=== PATIENT | female | born 1960 | race Caucasian/White ===

== ENCOUNTER 2020-01-30 10:10 | Outpatient (CLI) | payer OTHER, SELFPAY ==
[2020-01-30 10:59] LABS: SARS-CoV-2 Ag Positive (Negative)
== END 2020-01-30 10:11 | disposition home or self-care (01) ==
LOC: CHSLAB 10:11
PROVIDERS: PCP Internal Medicine; Visit Provider Internal Medicine
DX: U07.1 COVID-19 (principal)
CPT/HCPCS: 87426

== ENCOUNTER → 2020-04-10 10:36 | Outpatient (CLI) | payer OTHER, SELFPAY ==
--- NOTE | ~2020-04-10 | MM_ITS ---
EXAMINATION: MM screening [facility] BI w puma HISTORY: Screening mammogram TECHNIQUE: Craniocaudal and mediolateral oblique 3-D tomosynthesis images were obtained and synthetic 2-D images were generated. CAD analysis was submitted and interpreted. COMPARISON: 12/28/2018, 11/03/2017, 08/19/2016 bilateral digital screening mammogram examinations BREAST PARENCHYMAL COMPOSITION: There are scattered areas of fibroglandular density. FINDINGS: There is no evidence of suspicious mass, calcification, or architectural distortion to sugg est malignancy in either breast. There has been no suspicious interval change. IMPRESSION: 1. No mammographic evidence of malignancy. 2. Recommend routine screening mammography in one year. BI-RADS Category 1: Negative Reviewed, dictated and finalized at location A. 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
== END ==
PROVIDERS: PCP Internal Medicine; Visit Provider Internal Medicine
DX: Z12.31 Encounter for screening mammogram for malignant neoplasm of breast (principal)
CPT/HCPCS: 77063; 77067

== ENCOUNTER → 2021-05-26 13:24 | Outpatient (CLI) | payer BC, SELFPAY ==
--- NOTE | ~2021-05-26 | MM_ITS ---
EXAMINATION: MM screening [facility] BI w puma HISTORY: Screening mammogram TECHNIQUE: Craniocaudal and mediolateral oblique 3-D tomosynthesis images were obtained and synthetic 2-D images were generated. CAD analysis was submitted and interpreted. COMPARISON: April 10, 2020, December 28, 2018, November 03, 2017 bilateral screening mammogram ex aminations BREAST PARENCHYMAL COMPOSITION: There are scattered areas of fibroglandular density. FINDINGS: There is no evidence of suspicious mass, calcification, or architectural distortion to sugg est malignancy in either breast. There has been no suspicious interval change. IMPRESSION: 1. No mammographic evidence of malignancy. 2. Recommend routine screening mammography in one year. BI-RADS Category 1: Negative Reviewed, dictated and finalized at location A.
== END ==
PROVIDERS: Visit Provider Internal Medicine
DX: Z12.31 Encounter for screening mammogram for malignant neoplasm of breast (principal)
CPT/HCPCS: 77063; 77067

== ENCOUNTER 2022-02-12 08:41 | Emergency (ER) | payer BC, SELFPAY ==
--- NOTE | ~2022-02-12 | XR_ITS ---
EXAMINATION: XR wrist RT min 3V DATE: 02/12/2022 09:13 INDICATION: Right wrist deformity. Fall. TECHNIQUE: 6 views of right wrist were obtained. COMPARISON: None. FINDINGS: There is a comminuted fracture of distal radius with involvement of the distal articular richey rface and distal radioulnar joint. The main distal fracture fragment demonstrates impaction and dorsa l angulation. There is 21 degrees dorsal tilt of the distal articular surface. There is mild osteoart hritis of first interphalangeal joint and first carpometacarpal joint. IMPRESSION: 1. Comminuted fracture of distal radius. Reviewed, dictated and finalized at location A. 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
--- NOTE | ~2022-02-12 | XR_ITS ---
EXAMINATION: XR elbow LT min 3V DATE: 02/12/2022 09:46 INDICATION: Left elbow pain. Fall. TECHNIQUE: 4 views of left elbow were obtained. COMPARISON: None. FINDINGS: Bone alignment is normal. No fracture. Joint spaces are normal. There is an elbow joint eff usion. IMPRESSION: 1. Elbow joint effusion. No fracture identified. Reviewed, dictated and finalized at location A. KEEPER
[2022-02-12 08:45] VITALS: BP 137/62; PULSE 56; RESP 18; TEMP 36.4; O2SAT 100
--- NOTE | 2022-02-12 09:04 | ED.GENADULT ---
HPI - General Adult General Chief complaint: Extremity Injury, Upper Stated complaint: right arm and wrist injury Time Seen by Provider: 02/12/22 08:50 History of Present Illness HPI narrative: The patient is otherwise healthy 61-year-old no significant past medical history, no medications. She was doing routine morning walk or bike she tripped and fell, landing on her right wrist where there is an obvious deformity. May have scraped her knees. Also with left elbow pain but is able to move the left elbow without much difficulty. Able to move right elbow and shoulder as well that any problems. No neck pain or back pain. No loss of consciousness. Mild tingling/paresthesias in the right hand but no numbness. No other complaints. Related Data Home Medications Medication Instructions Recorded Confirmed Adults Multivitamin 1 tablet BYMOUTH DAILY 02/12/22 02/12/22 Allergies Allergy/AdvReac Type Severity Reaction Status Date / Time No Known Drug Allergies Allergy Unknown Verified 05/28/14 10:19 Review of Systems Review of Systems: All systems reviewed & are unremarkable except as noted in HPI and below Constitutional: Constitutional: Reports no additional constitutional complaints, Denies anorexia, Denies body ache(s), Denies chills, Denies excessive sweating, Denies fatigue, Denies fever(s), Denies frequent falls, Denies headache(s), Denies malaise and Denies poor appetite Eyes: Eyes: Reports no additional eye complaints, Denies blurry vision, Denies change in vision, Denies irritation, Denies itchy eyes and Denies photophobia ENT: Reports system reviewed and no additional complaints, except as documented, Reports Normal hearing present, Denies change in voice, Denies dysphagia, Denies vertigo, Denies dizziness, Denies ear discharge, Denies headache(s), Denies hearing loss, Denies hoarseness, Denies nasal congestion, Denies neck pain, Denies sinus pressure, Denies sore throat and Denies throat swelling Cardiovascular: Cardiovascular: Reports no additional cardiovascular complaints, Denies chest pain, Denies syncope, Denies rapid heart rate, Denies irregular heart rhythm, Denies leg edema, Denies dyspnea and Denies slow heart rate Respiratory: Respiratory: Reports no additional respiratory complaints, Denies cough, Denies dyspnea, Denies stridor and Denies wheezing Gastrointestinal: Gastrointestinal: Reports no additional gastrointestinal complaints, Denies abdominal pain, Denies melena, Denies hematochezia, Denies dysphagia, Denies diarrhea, Denies nausea and Denies vomiting Genitourinary: Genitourinary: Denies hematuria, Denies urinary frequency, Denies dysuria, Denies flank pain and Denies urinary urgency Musculoskeletal: Musculoskeletal: Reports no additional musculoskeletal complaints, Denies abnormal gait, Denies back pain, Denies myalgias, Reports arthralgias, Reports joint swelling, Reports limited range of motion, Denies muscle cramps, Denies muscle weakness, Denies neck pain and Denies numbness Comments: Swelling pain and limited movement of the right wrist with a bony deformity Integumentary/Breasts: Skin/Breast: Reports system reviewed and no additional complaints, except as docu, Denies breast pain, Denies change in pigmentation, Denies pruritus, Denies erythema and Denies wounds Neurologic: Reports system reviewed and no additional complaints, except as documented, Reports Normal hearing present, Denies Abnormal speech present, Denies abnormal gait, Denies confusion, Denies vertigo, Denies dizziness, Denies syncope, Denies frequent falls, Denies headache(s), Denies focal weakness, Denies numbness and Denies paresthesias Psychiatric: Psychiatric: Reports no additional psychiatric complaints and Denies confusion Endocrine: Endocrine: Reports no additional endocrine complaints, Denies cold intolerance, Denies excessive sweating, Denies fatigue and Denies heat intolerance Hematologic/Lymphatic: Hematologic/Lymphatic: Report
[2022-02-12] MEDS: IBUPROFEN 600 MG TABLET PO (09:20)
[2022-02-12] MEDS: ACETAMINOPHEN 325 MG TABLET 975 MG PO (09:21)
[2022-02-12] MEDS: NEOMYCIN/POLYMYXIN/BACITRACIN OINTMENT 15 GM TUBE 1 APPLIC TOPICAL (09:30)
[2022-02-12 10:00] VITALS: BP 140/64; PULSE 60; RESP 20; TEMP 36.4; O2SAT 99
== END 2022-02-12 10:15 | disposition home or self-care (01) ==
PROVIDERS: Emergency Provider Emergency Medicine; PCP Internal Medicine
DX: S52.501A Unspecified fracture of the lower end of right radius, initial encounter for closed fracture (principal); S60.811A Abrasion of right wrist, initial encounter; S50.02XA Contusion of left elbow, initial encounter; W01.0XXA Fall on same level from slipping, tripping and stumbling without subsequent striking against object, initial encounter
CPT/HCPCS: 29125; 73080; 73110; 99284; A4565; A9270

== ENCOUNTER 2022-04-02 06:56 | Outpatient (CLI) | payer BC, SELFPAY ==
--- NOTE | ~2022-04-02 | MR_ITS ---
MRI of the left elbow CLINICAL HISTORY: Pain TECHNIQUE: Proton-density and proton-density fat-sat imaging was performed in the axial, coronal, and sagittal planes. FINDINGS: Ulnar collateral ligament is intact. Radial collateral ligament is probably thickened and h yperintense, compatible with partial tear/injury. There is moderate grade partial tearing at the comm on extensor tendon origin at the lateral epicondyle of the humerus. Common flexor tendon origin is un remarkable. There is extensive marrow edema throughout the lateral aspect of the distal humerus. No fracture iden tified. 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 Moderate elb ow joint effusion is present. No dislocation evident. Biceps, brachialis, and triceps tendons are intact. Visualized musculature demonstrates normal signal intensity. No subcutaneous mass or fluid evident. IMPRESSION: Moderate grade partial tearing at the common extensor tendon origin at the lateral epicondyle. Extensive marrow edema of the lateral aspect of the distal humerus without definite fracture. Finding s could reflect bone contusion versus reactive marrow edema due to lateral epicondylitis and high-gra de chondromalacia at the radiocapitellar articulation. Probable partial grade injury of the radial collateral ligament. Reviewed, dictated and finalized at location . 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 Extensive marrow edema of the lateral aspect of the distal humerus without defi nite fracture. Findings could reflect bone contusion versus reactive marrow annmarie ma due to lateral epicondylitis and high-grade chondromalacia at the radiocapit ellar articulation. Probable partial grade injury of the radial collateral ligament.
== END 2022-04-02 06:57 | disposition home or self-care (01) ==
LOC: CHSIMG 06:58
PROVIDERS: PCP Internal Medicine
DX: M25.522 Pain in left elbow (principal); S56.512A Strain of other extensor muscle, fascia and tendon at forearm level, left arm, initial encounter; M79.89 Other specified soft tissue disorders
CPT/HCPCS: 73221

== ENCOUNTER → 2022-08-09 10:27 | Outpatient (CLI) | payer BC, SELFPAY ==
--- NOTE | ~2022-08-09 | DEXA_ITS ---
Bone Density Report Name: LUIS PHILLIPS Age: 61 Sex: Female Ethnicity: White Date of : 1960 Indication: postmenopausal; screening for osteoporosis; prior fracture; hysterectomy; Referring Provider: Arian Squires Study: Bone densitometry was performed. Exam Date: August 09, 2022 Accession number: [id number] Bone Density: Region BMD T-score Z-score Classification AP Spine (L1-L4) 0.989 -0.5 1.2 Normal Femoral Neck (Left) 0.767 -0.7 0.7 Normal Total Hip (Left) 0.984 0.3 1.5 Normal Femoral Neck (Right) 0.732 -1.1 0.4 Osteopenia Total Hip (Right) 0.980 0.3 1.5 Normal Total Hip Mean 0.982 0.3 1.5 Normal World Health Organization criteria for BMD impression classify patients as: Normal (T-score at or above -1.0), Osteopenia (T-score between -1.0 and -2.5), or Osteoporosis (T-score at or below -2.5). 10-year Fracture Risk(1): Major Osteoporotic Fracture 13% Hip Fracture 1.0% Reported Risk Factors: [place] (), Neck BMD=0.732, BMI=24.7, previous fracture (1) FRAX(R) Version 3.08. Fracture probability calculated for an untreated patient. Fracture probability may be lower if the patient has received treatment. Previous Exams: Region Exam Age BMD T-score BMD Change BMD Change Date g/cm2 vs Baseline vs Previous AP Spine(L1-L4) 08/09/2022 61 0.989 -0.5 0.019 0.019 08/19/2016 56 0.970 -0.7 Total Hip(Left) 08/09/2022 61 0.984 0.3 -0.008 -0.008 08/19/2016 56 0.992 0.4 Total Hip(Right) 08/09/2022 61 0.980 0.3 0.005 0.005 08/19/2016 56 0.975 0.3 *Denotes significance at 95% confidence level, LSC for AP Spine = 0.022 g/cm2, LSC for Total Hip = 0.027 g/cm2 Clinical Information Provided by Patient: Has had a low trauma fracture Has the following medical conditions: Hysterectomy Patient maximum height was 65 Menopause Age: 38 Drinks caffeinated beverages Onset of menses at age 12 Number of children 2 Impression: The patient has low bone mass, based on the Right Femoral Neck T-score. The patient has an estimated ten-year risk of hip fracture of 1% and an estimated ten-year risk of major fracture of 13%, based on the WHO FRAX algorithm. The patient has risk factors, including: previous fracture. No significant bone loss was observed. Discussion: BONE DENSITY IS LOW AT ONE OR MORE SKELETAL SITES. This patient's lowest T-score is low at one or m
--- NOTE | ~2022-08-09 | MM_ITS ---
EXAMINATION: MM screening [facility] BI w puma HISTORY: Screening mammogram TECHNIQUE: Craniocaudal and mediolateral oblique 3-D tomosynthesis images were obtained and synthetic 2-D images were generated. CAD analysis was submitted and interpreted. COMPARISON: Serial mammographic examinations dating back to 12/28/2018 BREAST PARENCHYMAL COMPOSITION: There are scattered areas of fibroglandular density. FINDINGS: There is no evidence of suspicious mass, calcification, or architectural distortion to sugg est malignancy in either breast. There has been no suspicious interval change. IMPRESSION: 1. No mammographic evidence of malignancy. 2. Recommend routine screening mammography in one year. BI-RADS Category 1: Negative Reviewed, dictated and finalized at location A.
== END ==
PROVIDERS: PCP Internal Medicine; Visit Provider Internal Medicine
DX: Z12.31 Encounter for screening mammogram for malignant neoplasm of breast (principal); M81.0 Age-related osteoporosis without current pathological fracture; M85.851 Other specified disorders of bone density and structure, right thigh
CPT/HCPCS: 77063; 77067; 77080

== ENCOUNTER 2023-09-12 11:57 | Outpatient (CLI) | payer MEDICARE, SELFPAY ==
--- NOTE | ~2023-09-12 | MM_ITS ---
EXAMINATION: MM screening [facility] BI w puma HISTORY: Screening TECHNIQUE: Craniocaudal and mediolateral oblique 3-D tomosynthesis images were obtained and synthetic 2-D images were generated. CAD analysis was submitted and interpreted. COMPARISON: Comparison to multiple prior studies sequentially, with oldest reviewed study dated 08/2016. BREAST PARENCHYMAL COMPOSITION: Not dense: There are scattered areas of fibroglandular density. FINDINGS: There is no evidence of suspicious mass, calcification, or architectural distortion to sugg est malignancy in either breast. There has been no suspicious interval change. IMPRESSION: 1. No mammographic evidence of malignancy. 2. Recommend routine screening mammography in one year. BI-RADS Category 1: Negative Reviewed, dictated and finalized at location B.
== END 2023-09-12 11:58 ==
PROVIDERS: PCP Internal Medicine; Visit Provider Internal Medicine
DX: Z12.31 Encounter for screening mammogram for malignant neoplasm of breast (principal)
CPT/HCPCS: 77063; 77067

== ENCOUNTER 2024-05-02 00:56 | Day surgery (SDC) | payer MEDICARE, SELFPAY ==
[2024-04-23 14:17] VITALS: BMI 25.0
--- OUTSIDE RECORDS SUMMARY | 2024-05-02 00:59 | XMS_ITS | Clinical Summary ---
Author Organization [facility] Address [address] [place] [address] Care Team Providers Care Supervisor Accounts Receivable Name Role Phone Arian Squires MD Primary Care Provider [phone] Source Comments [facility],non-owned Affiliates and Associated Physician Practices is amultiple site organization consisting of ambulatory clinics and hospital sitesin [place], [place], [place] and [place]. This disclosure is being madepursuant to the Care Everywhere program and may not contain all information available regarding this patient. Last updated 17.[facility] Allergies No known active allergies Medications * Be aware that medications may not be up to date on this document. Alwaysverify current medications with the patient. Medication Sig Dispensed Refills Start Date End Date Status biotin 2.5 MG tablets Take 1 (one) tablet by mouth once daily Active multivitamin daily tablet Take 1 (one) tablet by mouth daily with food Active docusate sodium (Colace) 100 MG capsule Take 1 (one) capsule by mouth 2 times daily as needed for Constipation (relief of difficult bowel movements) 0 02/22/2022 Active aspirin (Aspirin) 81 MG chew tablet Take 1 (one) tablet by mouth once daily 14 tablet 02/22/2022 Active ondansetron, disintegrating, (Zofran ODT) 4 MG tablet Take 1 (one) tablet by mouth every 6 hours as needed for Nausea/Vomiting Allow tablet to dissolve on the tongue 10 tablet 02/22/2022 Active Active Problems No known active problems Social History Tobacco Use Types Packs/Day Years Used Date Smoking Tobacco: Never Smokeless Tobacco: Never Tobacco Cessation:Counseling Given: Not Answered Alcohol Use Standard Drinks/Week Comments Yes 0 (1 standard drink = 0.6 oz pur e alcohol) socially AUDIT-C Answer Date Recorded Q1: How often do you have a drink containing alcohol? Monthly or less 02/22/2022 Q2: How many drinks containi ng alcohol do you have on a typical day when you are drinking? Patient does not drink Q3: How often do you have si x or more drinks on one occasion? 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 Pulse 86 02/22/2022 11:52 AM ELECTRONIC FIELD SERVICE ENGINEER Temperature 36.7 C (98 F) 02/22/2022 11:52 AM ELECTRONIC FIELD SERVICE ENGINEER Respiratory Rate 16 02/22/2022 11:52 AM ELECTRONIC FIELD SERVICE ENGINEER Oxygen Saturation 95% 02/22/2022 11:52 AM ELECTRONIC FIELD SERVICE ENGINEER Inhaled Oxygen Concentration - - Weight 67.1 kg (148 lb) 02/22/2022 8:50 AM ELECTRONIC FIELD SERVICE ENGINEER Height 162.6 cm (5' 4 ) 02/22/2022 8:50 AM ELECTRONIC FIELD SERVICE ENGINEER Body Mass Index 25.4 02/22/2022 8:50 AM ELECTRONIC FIELD SERVICE ENGINEER Plan of Treatment Health Maintenance Due Date Last Done Comments BONE DENSITY TESTING 1960 COLOGUARD (AGES 45-75) - COLON CA SCREENING 1960 COLON MONITORING 1960 COLONOSCOPY - COLON CA SCREENING 1960 CT COLONOGRAPHY - COLON CA SCREENING 1960 Colorectal Cancer Screening 1960 FIT - COLON CA SCREENING 1960 FLEX SIG - COLON CA SCREENING 1960 LIPID TESTING 1960 MAMMOGRAM 1960 PAP SMEAR 1960 HIV SCREENING 1973 HEPATITIS C SCREENING 08/10/1976 DTAP/TDAP/TD VACCINES (1 - Tdap) 1977 PNEUMOCOCCAL VACCINE 50+ (1 of 1 - PCV) 2008 ZOSTER VACCINE (1 of 2) 2008 SCREENING FOR DIABETES 03/04/2022 COVID-19 VACCINE ( - season) 2023 12/28/2020, 06/05/2020, 05/10/2020 INFLUENZA VACCINE (#1) 2023 2, 11/15/2019, 01/18/2019, Additional history exists DEPRESSION SCREENING 02/14/2024 Respiratory Syncytial Virus (RSV) Vaccine Pt: or over 60 yrs (1 - 1-dose 75+ series) 2033 HEPATITIS B VACCINE Aged Out No longe r eligible based on patient's age to complete this topic HIB VACCINE Aged Out No longer eligi ble based on patient's age to complete this topic HPV VACCINE Aged Out No longer eligi ble based on patient's age to complete this topic MENINGOCOCCAL (Group B) VACCINE SHARED DECISION-MAKING Aged Out No longer eligible based on patient's age to complete this topic MENINGOCOCCAL GROUPS A/C/Y/W VACCINE Aged Out No longer eligible based on patient's age to complete this topic Medical Devices Implanted Type Area Building Energy Consultant Device Identifier Shelf Expiration Date Model / Serial / Lot Screw 2.4mm 20mm P/T Lopro Va Lck Smth Implanted:Qty: 3 on 02/22/2022 by Abelardo Mackenzie MD at [facility] Right: Wrist [employer] [id number] / / [id number] Screw 2.4mm 18mm P/T Lopro Va Lck Smth Implanted:Qty: 2 on 02/22/2022 by Abelardo Mackenzie MD at [facility] Right: Wrist [employer] [id number] / / [id number] Screw 3.5mm 14mm Kreulock Ti Nonster Implanted:Qty: 2 on 02/22/2022 by Abelardo Mackenzie MD at [facility] Right: Wrist [employer] [id number] / / [id number] Plate 3 Hl Mila Gft Wdw Rds Rt Wrst Volr Implanted:Qty: 1 on 02/22/2022 by Abelardo Mackenzie MD at [facility] Right: Wrist [employer] [id number] / / Screw 3.5mm 14mm T15 Ft Hxlb Slf Drl Sld Implanted:Qty: 1 on 02/22/2022 by Abelardo Mackenzie MD at [facility] Right: Wrist [employer] [id number] / / [id number] Explanted Type Area Building Energy Consultant Device Identifier Shelf Expiration Date Model / Serial / Lot Screw 3.5mm 18mm T15 Ft Slf-Tap Sld Hxlb Explanted:Qty: 1 on 02/22/2022 at [facility] Right: Wrist [employer] [id number] / / [id number] Care Teams Supervisor Accounts Receivable Relationship Specialty Start Date End Date Arian Squires MD [address] [place] [address] PCP - General Internal Medicine 02/16/22
[2024-05-02 09:32] VITALS: BP 141/77; PULSE 79; RESP 16; TEMP 35.9; O2SAT 100; BMI 25.8
--- NOTE | 2024-05-02 09:45 | PM.IMHP ---
H&P: HPI History of Present Illness Date/Time: 05/02/24 09:45 Chief Complaint: History of colon polyps Narrative: The patient has a history of colonic polyps, the last colonoscopy was around 10 years ago. There is no family history of colorectal cancer. Review of Systems Review of Systems: All systems reviewed & are unremarkable except as noted in HPI and below PMFSH Social History Social History Smoking status: Never smoker Alcohol intake: never Substance use: never Substance use type: does not use Living arrangements: with family Spiritual care concerns: No Meds Home Medications and Allergies Home Medications ?Medication ?Instructions ?Recorded ?Confirmed ?Type Adults Multivitamin 1 tablet BYMOUTH DAILY 02/12/22 05/02/24 History acetaminophen 300 mg-codeine 30 mg 1 tablet PO Q8H PRN severe pain 02/12/22 04/23/24 Rx tablet #10 tabs atorvastatin 10 mg tablet 10 mg PO EVERY OTHER DAY 04/23/24 05/02/24 History biotin 5,000 mcg chewable tablet 6,000 mcg PO DAILY 04/23/24 05/02/24 History coenzyme Q10 200 mg capsule (Co 200 mg PO DAILY 04/23/24 05/02/24 History Q-10) losartan 100 1 tablet PO DAILY 04/23/24 05/02/24 History mg-hydrochlorothiazide 12.5 mg tablet Allergies Allergy/AdvReac Type Severity Reaction Status Date / Time No Known Allergies Allergy Verified 05/02/24 09:39 Vital Signs Vital Signs - 24 hr 05/02/24 09:32 Temperature 96.6 F L Pulse Rate 79 Respiratory Rate 16 Blood Pressure 141/77 H Pulse Oximetry 100 Oxygen Delivery Room Air Exam Const: General: cooperative and healthy appearing Resp: Effort & Inspection: normal respiratory effort and able to speak in complete sentences Auscultation: clear to auscultation bilaterally Cardio: Rate: regular rate Rhythm: regular rhythm GI: Inspection: normal to inspection GI Palp: No No hepatosplenomegaly present Auscultation: normal bowel sounds Rectal Exam: deferred Skin: General skin exam: normal color Psych: Appearance: grossly normal Mental Status: mental status grossly normal Assessment and Plan Assessment and plan (1) History of colonic polyps: Code(s): Z86.0100 - Personal history of colon polyps, unspecified Status: Acute Assessment and Plan: The patient is deemed a good candidate for the procedure. Consent signed. Will proceed.
[2024-05-02] MEDS: LACTATED RINGERS 1,000 ML 150 ML IV CONT (09:51)
--- NOTE | 2024-05-02 09:55 | P.PNAN_ITS ---
Anes - Initial Pre Proc Eval Procedure: Operation Date: 05/02/24 11:00 Proposed Procedures p Colonoscopy - Rome Albert MD Date/Time: 05/02/24 09:55 Surgeon: Rome Albert MD Pre Op Diagnosis: Personal hx of colon polyps Patient Data Age: 63 Gender: F Height: 1.63 m Weight: 68.3 kg Last Vital Signs Temp 35.9 C L 05/02/24 09:32 Pulse 79 05/02/24 09:32 Resp 16 05/02/24 09:32 BP 141/77 H 05/02/24 09:32 Pulse Ox 100 05/02/24 09:32 O2 Del Method Room Air 05/02/24 09:32 Allergies Allergy/AdvReac Type Severity Reaction Status Date / Time No Known Allergies Allergy Verified 05/02/24 09:39 Home Medications ?Medication ?Instructions ?Recorded ?Confirmed ?Type Adults Multivitamin 1 tablet BYMOUTH DAILY 02/12/22 05/02/24 History acetaminophen 300 mg-codeine 30 mg 1 tablet PO Q8H PRN severe pain 02/12/22 04/23/24 Rx tablet #10 tabs atorvastatin 10 mg tablet 10 mg PO EVERY OTHER DAY 04/23/24 05/02/24 History biotin 5,000 mcg chewable tablet 6,000 mcg PO DAILY 04/23/24 05/02/24 History coenzyme Q10 200 mg capsule (Co 200 mg PO DAILY 04/23/24 05/02/24 History Q-10) losartan 100 1 tablet PO DAILY 04/23/24 05/02/24 History mg-hydrochlorothiazide 12.5 mg tablet Patient hx anesthesia problems: none Family hx anesthesia problems: none Results Review: All pre-operative results and documents have been reviewed as part of the pre- operative evaluation. [facility] Social History Social History Smoking status: Never smoker Alcohol intake: never Substance use: never Substance use type: does not use Living arrangements: with family Spiritual care concerns: No Anes - Eval Final PreProcedure Day of Procedure 05/02/24 09:55 Patient weight: normal Heart: regular rate and rhythm Lungs: clear to auscultation Airway: Mallampati scale class II Neurological: alert and oriented Last oral intake: >/= 8 hours ASA classification: II Emergent: no Anesthetic plan: proceed Anesthesia type and monitoring: general GIVS and standard monitoring Results Review: All pre-operative results and documents have been reviewed as part of the pre- operative evaluation. Informed Consent: The patient's anesthetic plan and its attendant risks and benefits were discussed with the patient/family/POA. Questions were solicited and answers provided to the satisfaction of the patient/family/POA.
[2024-05-02] MEDS: SIMETHICONE ORAL SUSPENSION 20 MG/0.3 ML 30 ML BOTTLE 0.6 ML IRRIGATION (10:05)
[2024-05-02 10:14] VITALS: BP 116/59; PULSE 72; RESP 17; O2SAT 99
[2024-05-02 10:24] VITALS: BP 110/56; PULSE 74; RESP 17; O2SAT 99
[2024-05-02 10:34] VITALS: BP 125/73; PULSE 64; RESP 18; O2SAT 100
== END 2024-05-02 10:43 | disposition home or self-care (01) ==
PROVIDERS: PCP Internal Medicine; Referring Provider Internal Medicine; Visit Provider Internal Medicine Gastroenterology
PROC: 0DJD8ZZ Inspection of Lower Intestinal Tract, Via Natural or Artificial Opening Endoscopic (ICD-10-PCS; CPT 45378; principal; 2024-05-02 11:00)
DX: Z12.11 Encounter for screening for malignant neoplasm of colon (principal); D12.5 Benign neoplasm of sigmoid colon
CPT/HCPCS: 45385; 88305; J2704; J7120

== ENCOUNTER 2024-09-16 12:12 | Outpatient (CLI) | payer MEDICARE, SELFPAY ==
--- NOTE | ~2024-09-16 | MM_ITS ---
EXAMINATION: MM screening calvin BI w puma HISTORY: Screening TECHNIQUE: Craniocaudal and mediolateral oblique 3-D tomosynthesis images were obtained and synthetic 2-D images were generated. CAD analysis was submitted and interpreted. COMPARISON: Comparison to multiple prior studies sequentially, with oldest reviewed study dated 12/14. BREAST PARENCHYMAL COMPOSITION: There are scattered areas of fibroglandular density. FINDINGS: There is no evidence of suspicious mass, calcification, or architectural distortion to sug gest malignancy in either breast. IMPRESSION: 1. No mammographic evidence of malignancy. 2. Recommend routine screening mammography in one year. BI-RADS Category 1: Negative Reviewed, dictated and finalized at location B.
--- NOTE | ~2024-09-16 | DEXA_ITS ---
Bone Density Report Name: LUIS PHILLIPS Age: 64 Sex: Female Ethnicity: White Date of : 1960 Indication: postmenopausal; screening for osteoporosis; hysterectomy; Referring Provider: Arain Squires Study: Bone densitometry was performed. Exam Date: September 16, 2024 Accession number: [id number] Bone Density: Region BMD T-score Z-score Classification AP Spine(L1-L4) 0.988 -0.5 1.3 Normal Femoral Neck (Left) 0.768 -0.7 0.8 Normal Total Hip (Left) 0.967 0.2 1.5 Normal Femoral Neck (Right) 0.767 -0.7 0.8 Normal Total Hip (Right) 0.984 0.3 1.6 Normal Total Hip Mean 0.976 0.3 1.6 Normal World Health Organization criteria for BMD impression classify patients as: Normal (T-score at or above -1.0), Osteopenia (T-score between -1.0 and -2.5), or Osteoporosis (T-score at or below -2.5). 10-year Fracture Risk: FRAX not reported because: All T-scores for Spine Total, Hip Total, Femoral Neck at or above -1.0 Previous Exams: -- Region Exam Age BMD T-score BMD Change BMD Change Date g/cm2 vs Baseline vs Previous -- AP Spine (L1-L4) 09/16/2024 64 0.988 -0.5 1.9% -0.1% 08/09/2022 61 0.989 -0.5 2.0% 2.0% 08/19/2016 56 0.970 -0.7 Total Hip(Left) 09/16/2024 64 0.967 0.2 -2.5% -1.7% 08/09/2022 61 0.984 0.3 -0.8% -0.8% 08/19/2016 56 0.992 0.4 Total Hip(Right) 09/16/2024 64 0.984 0.3 0.9% 0.3% 08/09/2022 61 0.980 0.3 0.5% 0.5% 08/19/2016 56 0.975 0.3 -- *Denotes significance at 95% confidence level, LSC for AP Spine = 0.022 g/cm2, LSC for Total Hip = 0.027 g/cm2 Clinical Information Provided by Patient: Has used the following medications: HRT (i.e. estrogen/hormone therapy) Has the following medical conditions: Hysterectomy Patient maximum height was 65 Menopause Age: 38 Drinks caffeinated beverages Onset of menses at age 12 Number of children 2 Impression: The patient has normal bone mass. No significant bone loss was observed. Discussion: BONE DENSITY IS ABOVE THE MINIMUM DESIRABLE LEVEL AT ALL SKELETAL SITES TESTED. This patient?s bone mineral density is above the minimum desirable level (T-score -1.0 or better) at all sites measured. The patient should follow a healthful lifestyle (good nutrition with adequate calcium and vitamin D, and appropriate weight-bearing exercise). Follow-Up: Consider repeating this study in 5 years or sooner if there is some new clinical indication. Reported by: MALLORY on 09/16/2024 12:50:00 PM. Reviewed, dictated and finalized at location A.
== END 2024-09-16 12:13 | disposition home or self-care (01) ==
PROVIDERS: PCP Internal Medicine; Visit Provider Internal Medicine
DX: Z12.31 Encounter for screening mammogram for malignant neoplasm of breast (principal); M81.0 Age-related osteoporosis without current pathological fracture
CPT/HCPCS: 77063; 77067; 77080